=== PATIENT | female | born 1965 | race African-American/Black ===

== ENCOUNTER 2018-09-14 13:03 | Emergency (ER) | payer OTHER ==
[~2018-09-14] VITALS: Ht 165.1 cm; Wt 103.9 kg
[~2018-09-14 13:03] MED LIST: ANUSOL-HC25 MG/SUPP RC; COL100 PO; MILK OF MA400 MG/5 M PO
[2018-09-14 13:16] VITALS: Ht 165.1 cm; Wt 103.9 kg
[2018-09-14 14:46] LABS: BASOPHIL % 0.4 % (0-2); PLATELET COUNT 290 x10^3mcL (130-400)
[2018-09-14 14:47] LABS: RED CELL DISTRIBUTION WIDTH 15.1 % (11.5-14.5)
[2018-09-14 15:00] LABS: CALCIUM 9.5 mg/dL (8.5-10.1); CARBON DIOXIDE 29.4 mmol/L (21-32); CHLORIDE SERUM 103 mmol/L (98-107); GFR1 > 60 mL/min; GLUCOSE SERUM 88 mg/dL (74-106); POTASSIUM SERUM 3.6 mmol/L (3.5-5.1); SODIUM SERUM 139 mmol/L (136-145)
[2018-09-14 15:04] LABS: ALBUMIN 3.6 g/dL (3.4-5.0); ALKALINE PHOSPHATASE 100 U/L (46-116); ALT/SGPT 23 U/L (14-59); AST/SGOT 13 U/L (15-37); BILIRUBIN TOTAL 0.6 mg/dL (0.20-1.00); HDL CHOLESTEROL 46 mg/dL (40-60); LIPASE 205 IU/L (73-393); TOTAL PROTEIN, SERUM 7.4 g/dL (6.4-8.2)
[2018-09-14 15:05] LABS: CHOLESTEROL 303 mg/dL (<200); CHOLESTEROL/HDL RATIO 6.6; TRIGLYCERIDES 211 mg/dL (<150)
[2018-09-14 15:06] LABS: FREE T4 0.95 ng/dL (0.76-1.46); FREE THYROXINE INDEX 3.2 ug/dL (1.4-4.5); T4(THYROXINE) 9.7 ug/dL (4.7-13.3)
[2018-09-14 15:27] LABS: T3 TOTAL 1.37 ng/mL
[2018-09-14 16:54] VITALS: BP 128/80
== END 2018-09-14 17:12 | disposition home or self-care (01) ==
LOC: ED 13:03
PROVIDERS: Specialist
DX: E04.9 Nontoxic goiter, unspecified (principal); I49.9 Cardiac arrhythmia, unspecified; Z88.1 Allergy status to other antibiotic agents; Z88.5 Allergy status to narcotic agent; Z90.710 Acquired absence of both cervix and uterus
CPT/HCPCS: 36415; 83880; 84439; Q0092

== ENCOUNTER 2018-10-31 19:12 | Emergency (ER) | payer OTHER ==
[~2018-10-31] VITALS: Ht 167.6 cm; Wt 102.5 kg
[2018-10-31 19:31] VITALS: BP 133/67; Ht 167.6 cm; Wt 102.5 kg
== END 2018-10-31 21:08 | disposition home or self-care (01) ==
LOC: ED 19:12
DX: R11.2 Nausea with vomiting, unspecified (principal); R19.7 Diarrhea, unspecified; R10.32 Left lower quadrant pain; Z98.890 Other specified postprocedural states; Z90.710 Acquired absence of both cervix and uterus; Z88.1 Allergy status to other antibiotic agents; Z88.5 Allergy status to narcotic agent
CPT/HCPCS: J1885

== ENCOUNTER 2019-01-17 12:54 | Emergency (ER) | payer OTHER ==
[~2019-01-17] VITALS: Ht 167.6 cm; Wt 103.4 kg
[2019-01-17 13:00] VITALS: BP 131/73; Ht 167.6 cm; Wt 103.4 kg
== END 2019-01-17 13:40 | disposition home or self-care (01) ==
LOC: ED 12:54
DX: K12.0 Recurrent oral aphthae (principal); Z88.1 Allergy status to other antibiotic agents; Z88.0 Allergy status to penicillin; Z88.5 Allergy status to narcotic agent; Z90.710 Acquired absence of both cervix and uterus; Z98.890 Other specified postprocedural states

== ENCOUNTER 2019-01-23 05:11 | Emergency (ER) | payer OTHER ==
[~2019-01-23] VITALS: Ht 167.6 cm; Wt 102.5 kg
[2019-01-23 05:16] VITALS: Ht 167.6 cm; Wt 102.5 kg
[2019-01-23 07:03] VITALS: BP 137/82
== END 2019-01-23 07:03 | disposition home or self-care (01) ==
LOC: ED 05:11
DX: K08.89 Other specified disorders of teeth and supporting structures (principal); G89.29 Other chronic pain; Z90.710 Acquired absence of both cervix and uterus; Z98.890 Other specified postprocedural states; Z88.1 Allergy status to other antibiotic agents; Z88.5 Allergy status to narcotic agent
CPT/HCPCS: J1885

== ENCOUNTER 2019-03-08 13:54 | Emergency (ER) | payer OTHER ==
[~2019-03-08] VITALS: Ht 167.6 cm; Wt 102.6 kg
[2019-03-08 13:59] VITALS: Ht 167.6 cm; Wt 102.6 kg
[2019-03-08 16:55] LABS: BASOPHIL % 0.4 % (0-2); PLATELET COUNT 281 x10^3mcL (130-400); RED CELL DISTRIBUTION WIDTH 14.4 % (11.5-14.5)
[2019-03-08 17:14] LABS: CALCIUM 10.2 mg/dL (8.5-10.1); CARBON DIOXIDE 30.6 mmol/L (21-32); CHLORIDE SERUM 106 mmol/L (98-107); GFR1 > 60 mL/min; GLUCOSE SERUM 93 mg/dL (74-106); POTASSIUM SERUM 3.3 mmol/L (3.5-5.1); SODIUM SERUM 143 mmol/L (136-145)
[2019-03-08 17:17] LABS: ALBUMIN 3.9 g/dL (3.4-5.0); ALKALINE PHOSPHATASE 88 U/L (46-116); ALT/SGPT 25 U/L (14-59); AMYLASE 74 U/L (25-115); AST/SGOT 8 U/L (15-37); BILIRUBIN TOTAL 0.57 mg/dL (0.20-1.00); LIPASE 177 IU/L (73-393); TOTAL PROTEIN, SERUM 7.5 g/dL (6.4-8.2)
[2019-03-08 17:18] LABS: AMPHETAMINE QUAL UR NONE DETECTED (See below)
[2019-03-08 17:33] VITALS: BP 143/81
== END 2019-03-08 17:33 | disposition home or self-care (01) ==
LOC: ED 13:54
PROVIDERS: Emergency Medicine
DX: K29.70 Gastritis, unspecified, without bleeding (principal); R07.89 Other chest pain; K08.89 Other specified disorders of teeth and supporting structures; Z88.1 Allergy status to other antibiotic agents; Z88.5 Allergy status to narcotic agent; Z98.890 Other specified postprocedural states
CPT/HCPCS: 36415; J2270; J2405

== ENCOUNTER 2019-11-01 07:19 | Emergency (ER) | payer OTHER ==
[~2019-11-01] VITALS: Ht 167.6 cm; Wt 101.6 kg
[2019-11-01 07:23] VITALS: Ht 167.6 cm; Wt 101.6 kg
[2019-11-01 07:50] VITALS: BP 128/75
== END 2019-11-01 07:50 | disposition home or self-care (01) ==
LOC: ED 07:19
DX: K64.8 Other hemorrhoids (principal); Z90.710 Acquired absence of both cervix and uterus; Z98.890 Other specified postprocedural states; Z88.5 Allergy status to narcotic agent; Z88.1 Allergy status to other antibiotic agents

== ENCOUNTER 2019-11-25 23:14 | Emergency (ER) | payer OTHER ==
[~2019-11-25] VITALS: Ht 167.6 cm; Wt 100.2 kg
[2019-11-25 23:19] VITALS: Ht 167.6 cm; Wt 100.2 kg
[2019-11-26 01:17] LABS: BASOPHIL % 1.8 % (0-2); PLATELET COUNT 292 x10^3mcL (130-400); RED CELL DISTRIBUTION WIDTH 14.2 % (11.5-14.5)
[2019-11-26 03:07] LABS: CALCIUM 9.2 mg/dL (8.5-10.1); CARBON DIOXIDE 26.2 mmol/L (21-32); CHLORIDE SERUM 106 mmol/L (98-107); CREATININE SERUM 0.8 mg/dL (0.6-1.0); GFR1 > 60 mL/min; GLUCOSE SERUM 98 mg/dL (74-106); POTASSIUM SERUM 5.2 mmol/L (3.5-5.1); SODIUM SERUM 145 mmol/L (136-145)
[2019-11-26 03:14] LABS: ALBUMIN 3.7 g/dL (3.4-5.0); ALKALINE PHOSPHATASE 101 U/L (46-116); ALT/SGPT 24 U/L (14-59); AST/SGOT 31 U/L (15-37); BILIRUBIN TOTAL 0.55 mg/dL (0.20-1.00); LIPASE 209 IU/L (73-393); TOTAL PROTEIN, SERUM 7.1 g/dL (6.4-8.2)
[2019-11-26 03:56] VITALS: BP 99/50
== END 2019-11-26 03:56 | disposition home or self-care (01) ==
LOC: ED 23:14
PROVIDERS: Emergency Medicine
DX: R10.11 Right upper quadrant pain (principal); R00.2 Palpitations; Z88.8 Allergy status to other drugs, medicaments and biological substances; Z88.0 Allergy status to penicillin; Z88.5 Allergy status to narcotic agent; Z98.890 Other specified postprocedural states; Z90.711 Acquired absence of uterus with remaining cervical stump
CPT/HCPCS: J2060; Q0092

== ENCOUNTER 2020-01-10 13:50 | Emergency (ER) | payer OTHER ==
[~2020-01-10] VITALS: Ht 167.6 cm; Wt 98.9 kg
[2020-01-10 13:57] VITALS: Ht 167.6 cm; Wt 98.9 kg
[2020-01-10 14:48] VITALS: BP 117/89
== END 2020-01-10 14:48 | disposition home or self-care (01) ==
LOC: ED 13:50
DX: F41.9 Anxiety disorder, unspecified (principal); I49.9 Cardiac arrhythmia, unspecified; Z88.8 Allergy status to other drugs, medicaments and biological substances; Z88.5 Allergy status to narcotic agent; Z90.710 Acquired absence of both cervix and uterus; Z98.890 Other specified postprocedural states

== ENCOUNTER 2020-02-07 16:13 | Emergency (ER) | payer OTHER ==
[~2020-02-07] VITALS: Ht 167.6 cm; Wt 98.9 kg
[2020-02-07 16:25] VITALS: BP 122/87; Ht 167.6 cm; Wt 98.9 kg
== END 2020-02-07 17:55 | disposition home or self-care (01) ==
LOC: ED 16:13
DX: M54.6 Pain in thoracic spine (principal); M25.511 Pain in right shoulder; I49.9 Cardiac arrhythmia, unspecified; Z88.5 Allergy status to narcotic agent; Z88.6 Allergy status to analgesic agent; Z88.1 Allergy status to other antibiotic agents; Z90.710 Acquired absence of both cervix and uterus; Z98.890 Other specified postprocedural states

== ENCOUNTER 2020-02-16 11:03 | Emergency (ER) | payer OTHER ==
[~2020-02-16] VITALS: Ht 167.6 cm; Wt 98.4 kg
[2020-02-16 11:14] VITALS: Ht 167.6 cm; Wt 98.4 kg
[2020-02-16 12:38] VITALS: BP 119/66
== END 2020-02-16 12:38 | disposition home or self-care (01) ==
LOC: ED 11:03
DX: M54.5 Low back pain (principal); Z90.710 Acquired absence of both cervix and uterus; Z98.890 Other specified postprocedural states; Z88.1 Allergy status to other antibiotic agents; Z88.5 Allergy status to narcotic agent
CPT/HCPCS: J1885; Q0092

== ENCOUNTER 2020-03-05 01:29 | Emergency (ER) | payer OTHER ==
[~2020-03-05] VITALS: Ht 167.6 cm; Wt 98.4 kg
[2020-03-05 01:40] VITALS: Ht 167.6 cm; Wt 98.4 kg
[2020-03-05 02:58] VITALS: BP 130/84
== END 2020-03-05 02:58 | disposition home or self-care (01) ==
LOC: ED 01:29
DX: K08.89 Other specified disorders of teeth and supporting structures (principal); L29.9 Pruritus, unspecified; H57.89 Other specified disorders of eye and adnexa; Z90.710 Acquired absence of both cervix and uterus; Z98.890 Other specified postprocedural states; Z88.1 Allergy status to other antibiotic agents; Z88.5 Allergy status to narcotic agent
CPT/HCPCS: J1885

== ENCOUNTER 2020-03-07 18:52 | Emergency (ER) | payer OTHER ==
[~2020-03-07] VITALS: Ht 167.6 cm; Wt 98.4 kg
[2020-03-07 19:10] VITALS: Ht 167.6 cm; Wt 98.4 kg
[2020-03-07 19:39] LABS: BASOPHIL % 0.5 % (0-2); PLATELET COUNT 276 x10^3mcL (130-400); RED CELL DISTRIBUTION WIDTH 14.5 % (11.5-14.5)
[2020-03-07 19:46] LABS: CALCIUM 9.2 mg/dL (8.5-10.1); CARBON DIOXIDE 31.3 mmol/L (21-32); CREATININE SERUM 1.1 mg/dL (0.6-1.0); POTASSIUM SERUM 3.5 mmol/L (3.5-5.1)
[2020-03-07 19:52] LABS: ALBUMIN 3.8 g/dL (3.4-5.0); BILIRUBIN TOTAL 0.71 mg/dL (0.20-1.00); TOTAL PROTEIN, SERUM 7.1 g/dL (6.4-8.2)
[2020-03-07 21:56] VITALS: BP 101/51
== END 2020-03-07 21:25 | disposition home or self-care (01) ==
LOC: ED 18:52
PROVIDERS: Emergency Medicine
DX: R10.33 Periumbilical pain (principal); R10.10 Upper abdominal pain, unspecified; R11.0 Nausea; K08.89 Other specified disorders of teeth and supporting structures; Z90.710 Acquired absence of both cervix and uterus; Z98.890 Other specified postprocedural states; Z88.5 Allergy status to narcotic agent; Z88.1 Allergy status to other antibiotic agents
CPT/HCPCS: 36415; Q0092

== ENCOUNTER 2020-03-22 14:09 | Emergency (ER) | payer OTHER ==
[~2020-03-22] VITALS: Ht 167.6 cm; Wt 98.0 kg
[2020-03-22 14:20] VITALS: Ht 167.6 cm; Wt 98.0 kg
[2020-03-22 15:10] LABS: microscopic required? YES; urine erythrocyte TRACE (NEGATIVE)
[2020-03-22 15:14] LABS: BASOPHIL % 0.7 % (0-2); PLATELET COUNT 278 x10^3mcL (130-400); RED CELL DISTRIBUTION WIDTH 14.7 % (11.5-14.5)
[2020-03-22 15:29] LABS: CALCIUM 9.2 mg/dL (8.5-10.1); CARBON DIOXIDE 30.9 mmol/L (21-32); CHLORIDE SERUM 101 mmol/L (98-107); GFR1 > 60 mL/min; GLUCOSE SERUM 89 mg/dL (74-106); POTASSIUM SERUM 3.8 mmol/L (3.5-5.1); SODIUM SERUM 139 mmol/L (136-145)
[2020-03-22 15:34] LABS: ALBUMIN 3.6 g/dL (3.4-5.0); ALKALINE PHOSPHATASE 80 U/L (46-116); ALT/SGPT 18 U/L (14-59); AST/SGOT 12 U/L (15-37); BILIRUBIN TOTAL 0.7 mg/dL (0.20-1.00); LIPASE 208 IU/L (73-393); TOTAL PROTEIN, SERUM 6.4 g/dL (6.4-8.2)
[2020-03-22 16:04] VITALS: BP 104/55
== END 2020-03-22 16:04 | disposition home or self-care (01) ==
LOC: ED 14:09
PROVIDERS: Emergency Medicine
DX: K20.9 Esophagitis, unspecified (principal); Z90.710 Acquired absence of both cervix and uterus; Z98.890 Other specified postprocedural states; Z88.5 Allergy status to narcotic agent; Z88.1 Allergy status to other antibiotic agents
CPT/HCPCS: 36415; Q0092

== ENCOUNTER 2020-03-28 20:51 | Emergency (ER) | payer OTHER ==
[~2020-03-28] VITALS: Ht 167.6 cm; Wt 97.1 kg
[2020-03-28 21:09] VITALS: Ht 167.6 cm; Wt 97.1 kg
[2020-03-28 22:11] LABS: BASOPHIL % 0.6 % (0-2); PLATELET COUNT 257 x10^3mcL (130-400); RED CELL DISTRIBUTION WIDTH 14.4 % (11.5-14.5)
[2020-03-28 22:25] LABS: CALCIUM 9.2 mg/dL (8.5-10.1); CARBON DIOXIDE 29.3 mmol/L (21-32); CHLORIDE SERUM 103 mmol/L (98-107); GFR1 > 60 mL/min; GLUCOSE SERUM 94 mg/dL (74-106); POTASSIUM SERUM 3.8 mmol/L (3.5-5.1); SODIUM SERUM 140 mmol/L (136-145)
[2020-03-28 22:29] LABS: ALBUMIN 3.7 g/dL (3.4-5.0); ALKALINE PHOSPHATASE 83 U/L (46-116); ALT/SGPT 23 U/L (14-59); AST/SGOT 14 U/L (15-37); BILIRUBIN TOTAL 0.6 mg/dL (0.20-1.00); LIPASE 192 IU/L (73-393); TOTAL PROTEIN, SERUM 7.2 g/dL (6.4-8.2)
[2020-03-29 00:58] LABS: microscopic required? NO
[2020-03-29 01:06] LABS: UA SPECIFIC GRAVITY 1.025 (1.005-1.035); urine erythrocyte NEGATIVE (NEGATIVE)
[2020-03-29 01:21] VITALS: BP 109/62
== END 2020-03-29 01:21 | disposition home or self-care (01) ==
LOC: ED 20:51
PROVIDERS: Emergency Medicine
DX: K44.9 Diaphragmatic hernia without obstruction or gangrene (principal); Z90.710 Acquired absence of both cervix and uterus; Z98.890 Other specified postprocedural states; Z88.1 Allergy status to other antibiotic agents; Z88.5 Allergy status to narcotic agent
CPT/HCPCS: 36415; Q9967

== ENCOUNTER 2020-03-31 22:28 | Emergency (ER) | payer OTHER ==
[~2020-03-31] VITALS: Ht 167.6 cm; Wt 96.2 kg
[2020-04-01 00:18] VITALS: BP 128/71; Ht 167.6 cm; Wt 96.2 kg
== END 2020-04-01 00:59 | disposition home or self-care (01) ==
LOC: ED 22:28
DX: J06.9 Acute upper respiratory infection, unspecified (principal); Z20.828 Contact with and (suspected) exposure to other viral communicable diseases; Z90.710 Acquired absence of both cervix and uterus; Z88.1 Allergy status to other antibiotic agents; Z88.5 Allergy status to narcotic agent
CPT/HCPCS: U0003-CS

== ENCOUNTER 2020-06-10 19:25 | Emergency (ER) | payer OTHER ==
[~2020-06-10] VITALS: Ht 167.6 cm; Wt 96.2 kg
[2020-06-10 19:44] VITALS: Ht 167.6 cm; Wt 96.2 kg
[2020-06-10 20:22] LABS: UA SPECIFIC GRAVITY 1.025 (1.005-1.035); microscopic required? YES; urine erythrocyte TRACE (NEGATIVE)
[2020-06-10 20:53] VITALS: BP 116/71
== END 2020-06-10 20:53 | disposition home or self-care (01) ==
LOC: ED 19:25
PROVIDERS: Emergency Medicine
DX: N39.0 Urinary tract infection, site not specified (principal); I49.9 Cardiac arrhythmia, unspecified; Z90.710 Acquired absence of both cervix and uterus; Z88.1 Allergy status to other antibiotic agents; Z88.5 Allergy status to narcotic agent; Z88.8 Allergy status to other drugs, medicaments and biological substances

== ENCOUNTER 2020-07-18 18:37 | Emergency (ER) | payer OTHER ==
[~2020-07-18] VITALS: Ht 167.6 cm; Wt 93.9 kg
[2020-07-18 18:57] VITALS: Ht 167.6 cm; Wt 93.9 kg
[2020-07-18 22:59] VITALS: BP 106/65
== END 2020-07-18 22:59 | disposition home or self-care (01) ==
LOC: ED 18:37
DX: T52.0X1A Toxic effect of petroleum products, accidental (unintentional), initial encounter (principal); Z88.5 Allergy status to narcotic agent; Z88.1 Allergy status to other antibiotic agents; Z90.710 Acquired absence of both cervix and uterus; Y92.89 Other specified places as the place of occurrence of the external cause
CPT/HCPCS: Q0092

== ENCOUNTER 2020-07-21 14:22 | Emergency (ER) | payer OTHER | END 2020-07-21 17:49 | disposition home or self-care (01) | LOC: ED 14:22 | DX: R10.9 Unspecified abdominal pain (principal); R30.0 Dysuria; Z98.890 Other specified postprocedural states ==

== ENCOUNTER 2020-07-24 03:48 | Emergency (ER) | payer OTHER ==
[~2020-07-24] VITALS: Ht 170.2 cm; Wt 93.4 kg
[2020-07-24 03:58] VITALS: Ht 170.2 cm; Wt 93.4 kg
--- NOTE | 2020-07-24 04:53 | NUR ---
PT ADMITTED TO THE OB ROOM COMPLAINING OF LO9W ABD PAIN. PT STATESSHE HAD A HERNIA REPAIR SURGERY 1 MONTH AGO TODAY. SHE RATES THE PAIN NOW AT 5/10. IT WAS MUCH HIGHER BEFORE SHE CAME TO THE HOSPITAL. PT DROVE HERSELF TO THE HOSPITAL PT IS UP TO THE BATHROOM TO OBTAIN A SAMPLE OF URINE. LAB AT THE BEDSIDE TO DRAW OREDERED LABS.
[2020-07-24 05:22] LABS: UA SPECIFIC GRAVITY >=1.030 (1.005-1.035); microscopic required? YES; urine erythrocyte 1+ (NEGATIVE)
[2020-07-24 05:35] LABS: CARBON DIOXIDE 26.7 mmol/L (21-32); CHLORIDE SERUM 104 mmol/L (98-107); CREATININE SERUM 0.8 mg/dL (0.6-1.0); GFR1 > 60 mL/min; GLUCOSE SERUM 98 mg/dL (74-106); POTASSIUM SERUM 3.3 mmol/L (3.5-5.1); SODIUM SERUM 140 mmol/L (136-145)
[2020-07-24 05:36] VITALS: BP 92/50
[2020-07-24 05:40] LABS: ALBUMIN 3.8 g/dL (3.4-5.0); ALKALINE PHOSPHATASE 88 U/L (46-116); ALT/SGPT 25 U/L (14-59); AST/SGOT 15 U/L (15-37); BILIRUBIN TOTAL 0.76 mg/dL (0.20-1.00); LIPASE 169 IU/L (73-393); TOTAL PROTEIN, SERUM 6.9 g/dL (6.4-8.2)
[2020-07-24 06:01] LABS: BASOPHIL % 0.6 % (0-2); PLATELET COUNT 234 x10^3mcL (130-400); RED CELL DISTRIBUTION WIDTH 14.7 % (11.5-14.5)
--- NOTE | 2020-07-24 06:16 | NUR ---
ALL OF THE DOCUMENTATION ON THIS CHART CHARTED UNDER THE CODE AGENCY RN 03 WAS DONE BY AGENCY RN04.
--- NOTE | 2020-07-24 07:13 | NUR ---
PT WAS NOT IN THE ROOM WHEN I WENT TO START HER IV AND GIVE HER ROCEPHIN AND DO HER SOPIA COVID TEST. WENT IN SEARCH OF THE PT AND SHE WAS IN HER CAR WITH HER CHILD. SHE HASD HER CHILD IN THE CAR BECAUSE SHE HAD NOT ANTICIPATED BEING ADMITTED. PT WAS TRYING TO CALL A FAMILY MEMBER TO DRAFTER DIRECTIONAL SURVEY THE CHILD BUT SHE RECEIVED NO ANSWER. SHE COUNTED ON HER SON BEING HOME HERE IN [place] BUT HAD TO DRIVE TO [place] INSTEAD TO HER SISTERS HOUSE. PT HAS NO IV IN PLACE
--- NOTE | 2020-07-24 07:17 | NUR ---
REPORT GIVEN TO TAMMIE FARIA.
== END 2020-07-24 06:30 | disposition left against medical advice (07) ==
LOC: ED 03:48 → DU 05:43
PROVIDERS: Emergency Medicine
DX: L02.211 Cutaneous abscess of abdominal wall (principal); Z88.5 Allergy status to narcotic agent; Z88.8 Allergy status to other drugs, medicaments and biological substances; Z90.711 Acquired absence of uterus with remaining cervical stump
CPT/HCPCS: J0696; J1885; J3370

== ENCOUNTER 2020-07-24 08:11 | Emergency (ER) | payer OTHER ==
[~2020-07-24] VITALS: Ht 167.6 cm; Wt 93.4 kg
[2020-07-24 08:29] VITALS: Ht 167.6 cm; Wt 93.4 kg
[2020-07-24 11:52] VITALS: BP 102/55
== END 2020-07-24 11:52 | disposition home or self-care (01) ==
LOC: ED 08:11
DX: L02.211 Cutaneous abscess of abdominal wall (principal); Z98.890 Other specified postprocedural states; Z90.710 Acquired absence of both cervix and uterus; Z88.1 Allergy status to other antibiotic agents; Z88.5 Allergy status to narcotic agent
CPT/HCPCS: J0696; J7030; J7060

== ENCOUNTER 2020-08-01 15:52 | Emergency (ER) | payer OTHER ==
[~2020-08-01] VITALS: Ht 167.6 cm; Wt 94.3 kg
[2020-08-01 16:08] VITALS: Ht 167.6 cm; Wt 94.3 kg
[2020-08-01 16:58] LABS: BASOPHIL % 0.6 % (0-2); PLATELET COUNT 237 x10^3mcL (130-400)
[2020-08-01 17:03] LABS: RED CELL DISTRIBUTION WIDTH 14.7 % (11.5-14.5)
[2020-08-01 17:13] LABS: CALCIUM 9.2 mg/dL (8.5-10.1); CARBON DIOXIDE 28.9 mmol/L (21-32); CHLORIDE SERUM 108 mmol/L (98-107); CREATININE SERUM 0.9 mg/dL (0.6-1.0); GFR1 > 60 mL/min; GLUCOSE SERUM 102 mg/dL (74-106); POTASSIUM SERUM 3.4 mmol/L (3.5-5.1); SODIUM SERUM 139 mmol/L (136-145)
[2020-08-01 17:17] LABS: ALBUMIN 3.8 g/dL (3.4-5.0); ALKALINE PHOSPHATASE 86 U/L (46-116); ALT/SGPT 24 U/L (14-59); AST/SGOT 15 U/L (15-37); C REACTIVE PROTEIN 0.4 mg/dL (<=0.9); LIPASE 240 IU/L (73-393)
[2020-08-01 18:15] LABS: ERYTHROCYTE SED RATE 12 mm/hr (0-30)
[2020-08-01 18:58] VITALS: BP 120/84
== END 2020-08-01 18:58 | disposition home or self-care (01) ==
LOC: ED 15:52
PROVIDERS: Emergency Medicine
DX: K91.872 Postprocedural seroma of a digestive system organ or structure following a digestive system procedure (principal); R53.83 Other fatigue; R53.1 Weakness
CPT/HCPCS: J2405; J7030

== ENCOUNTER 2020-08-21 09:05 | Emergency (ER) | payer OTHER ==
[~2020-08-21] VITALS: Ht 170.2 cm; Wt 93.0 kg
[2020-08-21 09:26] VITALS: Ht 170.2 cm; Wt 93.0 kg
[2020-08-21 11:52] LABS: UA SPECIFIC GRAVITY 1.025 (1.005-1.035); microscopic required? YES; urine erythrocyte TRACE (NEGATIVE)
[2020-08-21 11:54] LABS: BASOPHIL % 0.5 % (0-2); PLATELET COUNT 252 x10^3mcL (130-400); RED CELL DISTRIBUTION WIDTH 14.4 % (11.5-14.5)
[2020-08-21 12:18] LABS: CALCIUM 9.2 mg/dL (8.5-10.1); CARBON DIOXIDE 27.3 mmol/L (21-32); CHLORIDE SERUM 104 mmol/L (98-107); CREATININE SERUM 0.8 mg/dL (0.6-1.0); GFR1 > 60 mL/min; GLUCOSE SERUM 93 mg/dL (74-106); POTASSIUM SERUM 4.2 mmol/L (3.5-5.1); SODIUM SERUM 139 mmol/L (136-145)
[2020-08-21 12:22] LABS: ALBUMIN 3.6 g/dL (3.4-5.0); ALKALINE PHOSPHATASE 89 U/L (46-116); ALT/SGPT 21 U/L (14-59); AST/SGOT 18 U/L (15-37); BILIRUBIN TOTAL 0.84 mg/dL (0.20-1.00); LIPASE 153 IU/L (73-393); TOTAL PROTEIN, SERUM 7.1 g/dL (6.4-8.2)
[2020-08-21 13:24] VITALS: BP 118/80
== END 2020-08-21 13:24 | disposition home or self-care (01) ==
LOC: ED 09:05
PROVIDERS: Emergency Medicine
DX: R10.9 Unspecified abdominal pain (principal); M25.511 Pain in right shoulder; Z87.442 Personal history of urinary calculi; Z98.890 Other specified postprocedural states; Z88.1 Allergy status to other antibiotic agents; Z88.5 Allergy status to narcotic agent; V49.49XA Driver injured in collision with other motor vehicles in traffic accident, initial encounter; Y93.I9 Activity, other involving external motion; Y92.488 Other paved roadways as the place of occurrence of the external cause; Y99.8 Other external cause status
CPT/HCPCS: Q0092

== ENCOUNTER 2020-09-29 05:46 | Emergency (ER) | payer OTHER ==
[~2020-09-29] VITALS: Ht 167.6 cm; Wt 93.2 kg
[2020-09-29 05:56] VITALS: Ht 167.6 cm; Wt 93.2 kg
[2020-09-29 09:23] LABS: BASOPHIL % 1.1 % (0.2-1.3); PLATELET COUNT 257 x10^3mcL (179-408)
[2020-09-29 09:26] LABS: RED CELL DISTRIBUTION WIDTH 14.7 % (12.3-17.7)
[2020-09-29 09:27] LABS: rbc morphology (normal/abnorm) NORMAL (NORMAL)
[2020-09-29 09:36] LABS: CALCIUM 9.2 mg/dL (8.5-10.1); CARBON DIOXIDE 29.2 mmol/L (21-32); CHLORIDE SERUM 105 mmol/L (98-107); CREATININE SERUM 0.9 mg/dL (0.6-1.0); GFR1 > 60 mL/min; GLUCOSE SERUM 97 mg/dL (74-106); POTASSIUM SERUM 4.2 mmol/L (3.5-5.1); SODIUM SERUM 143 mmol/L (136-145)
[2020-09-29 09:40] LABS: ALBUMIN 3.5 g/dL (3.4-5.0); ALKALINE PHOSPHATASE 95 U/L (46-116); ALT/SGPT 18 U/L (14-59); AST/SGOT 7 U/L (15-37); BILIRUBIN TOTAL 0.51 mg/dL (0.20-1.00); LIPASE 190 IU/L (73-393); TOTAL PROTEIN, SERUM 6.8 g/dL (6.4-8.2)
[2020-09-29 10:42] VITALS: BP 110/65
== END 2020-09-29 10:43 | disposition home or self-care (01) ==
LOC: ED 05:46
PROVIDERS: Emergency Medicine
DX: R10.84 Generalized abdominal pain (principal); K59.00 Constipation, unspecified; R10.33 Periumbilical pain; R14.0 Abdominal distension (gaseous); R07.89 Other chest pain; M54.6 Pain in thoracic spine; Z87.442 Personal history of urinary calculi; Z90.710 Acquired absence of both cervix and uterus; Z88.1 Allergy status to other antibiotic agents; Z88.5 Allergy status to narcotic agent; Z88.8 Allergy status to other drugs, medicaments and biological substances

== ENCOUNTER 2020-11-02 15:08 | Emergency (ER) | payer OTHER ==
[~2020-11-02] VITALS: Ht 167.6 cm; Wt 92.1 kg
[2020-11-02 15:28] VITALS: Ht 167.6 cm; Wt 92.1 kg
[2020-11-02 17:16] VITALS: BP 103/70
== END 2020-11-02 17:16 | disposition home or self-care (01) ==
LOC: ED 15:08
DX: R53.1 Weakness (principal); G89.29 Other chronic pain; R10.9 Unspecified abdominal pain; R63.0 Anorexia; Z88.5 Allergy status to narcotic agent; Z87.442 Personal history of urinary calculi

== ENCOUNTER 2020-11-09 16:40 | Emergency (ER) | payer OTHER ==
[~2020-11-09] VITALS: Ht 167.6 cm; Wt 92.5 kg
[2020-11-09 16:55] VITALS: BP 118/91; Ht 167.6 cm; Wt 92.5 kg
[2020-11-09] MEDS ORDERED: MIRALAX17 GM PO (18:59)
== END 2020-11-09 19:25 | disposition home or self-care (01) ==
LOC: ED 16:40
DX: K59.00 Constipation, unspecified (principal); Z88.5 Allergy status to narcotic agent; Z88.1 Allergy status to other antibiotic agents; Z87.442 Personal history of urinary calculi; Z98.890 Other specified postprocedural states; Z90.710 Acquired absence of both cervix and uterus